=== PATIENT | male | born 1990 | race Caucasian/White ===

== ENCOUNTER 2019-04-04 16:14 | Inpatient (IN) ==
[~2019-04-04 16:14] MED LIST: LORazepam 2 MG/ML VIAL ONE
[2019-04-04] MEDS ORDERED: LORazepam 2 MG/ML VIAL IM ONE (16:18)
[2019-04-04] MEDS ORDERED: LORazepam 2 MG/ML VIAL IV PRN (16:19)
[2019-04-04] MEDS ORDERED: LORazepam 2 MG/ML VIAL IV ONE ×4 (16:43→17:13)
[2019-04-04] MEDS ORDERED: diphenhydrAMINE 50 MG/ML VIAL IV ONE (16:44)
[2019-04-04 17:08] LABS: Basophils # (Auto) 0 K/mcL (0.0-0.3); Basophils % (Auto) 0.4 % (0.0-2.0); Eosinophils # (Auto) 0.1 K/mcL (0.0-0.7); Eosinophils % (Auto) 1.2 % (0.0-7.0); Granulocytes % (Auto) 64.6 % (38.0-78.0); Hematocrit 48.4 % (41.0-55.0); Hemoglobin 15.9 g/dL (13.5-16.5); Lymphocytes # (Auto) 2.8 K/mcL (1.5-4.8); Lymphocytes % (Auto) 26.7 % (15.5-49.0); Mean Corpuscular HGB Conc 32.9 g/dL (31.0-36.0); Mean Platelet Volume 9.3 fL (7.4-10.4); Monocytes # (Auto) 0.8 K/mcL (0.1-0.9); Monocytes % (Auto) 7.1 % (1.0-12.0); Platelet Count 329 K/mcL (140-440); RBC 5.56 M/mcL (4.50-5.90); Red Cell Distribution Width 13.4 % (11.5-14.5); WBC 10.6 K/mcL (4.5-11.0)
[2019-04-04] MEDS ORDERED: ACETAMINOPHEN 650 MG SUPP.RECT PR ONE (17:18)
[2019-04-04 17:24] LABS: Appearance,Urine CLEAR; Bacteria,Urine 0 /hpf (0); Bilirubin,Urine NEG (NEG); Color,Urine YELLOW; Glucose,Urine (UA) NEGATIVE (NEG); Ketones,Urine NEG (NEG); Leukocyte Esterase,Urine NEG /uL (NEG); Mucus,Urine FEW /hpf (0); Nitrate,Urine NEG (NEG); Protein,Urine 30 mg/dL (NEG); Specific Gravity,Urine 1.023 (1.000-1.035); Sperm,Urine PRESENT /hpf (ABSENT); Urine Blood 0.03 mg/dL (<0.03); Urine Hyaline Cast 5 /lpf (0-2); Urine RBC 17 /hpf (0-1); Urine Squamous Epithelial Cell 0 /hpf (0-4); Urine WBC 3 /hpf (0-4)
[2019-04-04 17:28] LABS: ALT/SGPT 20 U/l (0-40); AST/SGOT 32 U/l (0-37); Albumin 4.8 gm/dL (3.2-5.2); Albumin/Globulin Ratio 1.8 (1.0-2.3); Alkaline Phosphatase 56 U/L (39-117); Bilirubin,Total 0.3 mg/dL (0.0-1.0); Blood Urea Nitrogen 17 mg/dl (6-20); Calcium 9.4 mg/dl (8.6-10.4); Carbon Dioxide 23 mmol/L (22-30); Chloride 99 mmol/L (96-108); Globulin 2.6 gm/dL (2.2-3.7); Glomerular Filtration Rate 83; Glucose 95 mg/dL (70-105)
[2019-04-04] MEDS ORDERED: LORazepam 50 MG in DEXTROSE 5% IN WATER 75 ML IV SCH (17:30)
[2019-04-04 17:31] LABS: Amphetamine Screen,Urine SUSPECT POSITIVE (NONDETECTED); Barbiturate Screen,Urine NONE DETECTED (NONDETECTED); Benzodiazepines Screen,Urine NONE DETECTED (NONDETECTED); Cannabinoid Screen,Urine SUSPECT POSITIVE (NONDETECTED); Cocaine Screen,Urine NONE DETECTED (NONDETECTED); Opiate Screen,Urine NONE DETECTED (NONDETECTED); Oxycodone, Urine Screen NONE DETECTED (NONDETECTED); Phencyclidine Screen,Urine NONE DETECTED (NONDETECTED)
[2019-04-04] MEDS ORDERED: OLANZapine 10 MG VIAL IM SCH (18:00)
--- NOTE | 2019-04-04 18:53 | Cat Scan Report ---
CLINICAL INFORMATION: Altered mental status TECHNIQUE: Axial noncontrast enhanced images to the brain. Sagittal and coronal reformatted images COMPARISON: Previous brain CT scan dated 09/23/2008 FINDINGS: No acute intracranial hemorrhage. There is no subdural hematoma. No subarachnoid hemorrhage. No intra-axial hematoma. No focal intra-axial attenuation abnormality or localized mass effect. No midline shift. Brain volume is normal. No hydrocephalus. Brainstem and cerebellum are negative. Basilar cisterns are normal No calvarial lesions. No fracture. No lytic lesion. Temporal bones are negative No interval change IMPRESSION: Negative noncontrast enhanced brain CT Interpreted and Authenticated by: Moustapha Rodriguez 04/04/19
--- NOTE | 2019-04-04 18:54 | XRay Report ---
INDICATION: Altered mental status. Fever TECHNIQUE: AP chest x-ray,portable supine COMPARISON: Previous examination dated 06/01/2012 FINDINGS:Lungs are negative. No parenchymal infiltrate or mass. No focal pulmonary parenchymal abnormality. Heart size and vascularity are normal. [place] and mediastinum are negative. No acute abnormality or interval change IMPRESSION: Negative AP chest x-ray Interpreted and Authenticated by: Moustapha Rodriguez 04/04/19
--- NOTE | 2019-04-04 19:23 | Emergency Department Note ---
Altered Mental Status HPI - General Chief Complaint: Altered Mental Status Stated Complaint: altered mental status Time Seen by Provider: 04/04/19 16:20 Source: other Mode of arrival: other Limitations: no limitations - History of Present Illness HPI Narrative: 28-year-old male was brought in via private vehicle for possible drug overdose. They state altered LOC. Patient arrives with a female who states she is a friend of his but does not know him well. The female states he was at a bar and had a drink and then started behaving this way. Patient arrives absolutely covered in dirt and like he is fine cement powder. He is violent and uncooperat guerrero. Is able to tell us his birthday and first name but we cannot get much of information out of him at all otherwise. Is hallucinating. Believes he is at his mother's house. Insisting that he is talking to people in the room that are not there. He denies any recent cough, cold, or illness. Denies any injury or trauma. However he says no to everything and history is unreliable. Cannot tell us if he is in any pain, etc. family concerned that he was hanging around people the last couple of days that use an abundance of drugs including methamphetamine and I think this is a possibility. He has used methamphetamine heavily in the past. Context: drug abuse - Related Data Allergies Allergy/AdvReac Type Severity Reaction Status Date / Time sulfamethoxazole Allergy Unknown Unknown Verified 04/04/19 17:17 [From ] trimethoprim [From ] Allergy Unknown Unknown Verified 04/04/19 17:17 Review of Systems All systems ED: reviewed and negative except as stated. Past Medical History - Past Medical History Medical history: Reports: other (Polysubstance abuse) Psychiatric history: Reports: anxiety, depression, bipolar, schizophrenia Surgical history ED: Reports: orthopedic, other (knee) - Social History smoking status: Unknown if ever smoked Alcohol use: Reports: Unknown Drug use: Reports: unknown Physical Exam Limitations: no limitations General appearance: appears intoxicated, other (Extremely agitated, thrashing all over, can answer yes and no but does not make any sense when responding in any other form. Thinks he is at his mom's house and is obviously hallucinating. He is seeing and hearing things in the room that currently are not there.) Head: atraumatic, normocephalic, normal inspection, other (His head and entire body is covered in dirt and what appears to be like a cement powder.) Eye: Present: PERRL (Pupils are 4 mm bilaterally, equal and responsive to light), conjunctival injection (Mild bilaterally). Absent: periorbital swelling ENT: Present: TM's normal bilaterally, normal external ear exam (full of dirt). Absent: mucous membranes moist (Dry and full of dirt) Neck: Present: full ROM, trachea midline, other (Superficial abrasions to anterior and posterior neck). Absent: tenderness Chest: Present: symmetric chest wall rise Respiratory: Absent: respiratory distress, rales/crackles, accessory muscle use Cardiovascular: Present: tachycardia (Tachycardic in the 150s 160s on arrival) Back: Present: other (Multiple abrasions to the back) Neurological: Present: other (Agitated, combative, and will not follow commands.) Coma Scale Eye Opening: Spontaneous Coma Scale Motor Response: Withdraws to Pain Coma Scale Verbal Response: Inappropriate Coma Scale Total: 11 Psychiatric: Present: agitated, anxious, poor eye contact Expanded phychiatric: Present: paranoid, restlessness, uncooperative, auditory hallucinations, visual hallucinations Skin: Present: warm, diaphoretic, normal color Course Course Narrative: Patient continued to be severely combative, disoriented and delusional despite Ativan titration. Finally after about an hour and a half of Ativan to her titration as well as Zyprexa IM he did improve and we are able to get a CAT scan and further work-up. His and his mom are at the bedside. reports he has not been home in at least 3 days. His behavior is been very erratic as well. States she did talk to him through messages this morning. His mom is also at the bedside. Mom states that she is some suspected 2 to 3 weeks ago when he came to visit her that he was off of all of his routine meds and possibly using again. She tried to get him to do a drug test but he refused. She had not seen him since until she got the call today as she has his emergency contact. Mom reports history of bipolar, schizophrenia, anxiety, depression, polysubstance abuse. States he is currently on probation and was doing well for a while but obviously is not again. She states when he is severe like this he goes for days and days without sleeping and it gets worse and worse. Mom states he gets his medications at the [facility]. reports he has not had medications for over a month and refused to go the doctor had have his labs drawn etc. They report he is supposed to be on BuSpar, Seroquel, and Depakote. They deny that he has ever done inpatient treatment before for mental health reasons or substance abuse however he does have a history of outpatient treatment for both. At 1999, his went to try to get his phone and belongings from a place that he was last known to stay at. It was at this time that they found that his friend that he had been with all day had overdosed, EMS was called and he was pronounced at the scene. They believe he was with him all day using the same drugs etc. Family states they were told this person started acting violent and irrational too so they locked him in a room and checked on him after a while and he was . According to family they were using the same things and they now believe this was "bad drugs or an overdose". Vital Signs Temperature 99.1 F H 04/04/19 16:30 Temperature 98.3 F 04/04/19 19:49 Pulse Rate 122 H 04/04/19 19:49 Respiratory Rate 21 04/04/19 19:49 Blood Pressure 132/71 04/04/19 19:41 Pulse Oximetry (%) 97 04/04/19 19:49 Altered Mental Status - Lab Data Lab results reviewed: Yes I reviewed the patient's lab results. Result diagrams: 04/04/19 16:28 04/04/19 16:28 Lab Results 04/04/19 04/04/19 04/04/19 Range/Units 16:00 16:28 16:28 WBC 10.6 (4.5-11.0) K/mcL RBC 5.56 (4.50-5.90) M/mcL Hgb 15.9 (13.5-16.5) g/dL Hct 48.4 (41.0-55.0) % MCV 87.0 (80.0-100.0) fL MCH 28.6 (26.0-34.0) pg MCHC 32.9 (31.0-36.0) g/dL RDW 13.4 (11.5-14.5) % Plt Count 329 (140-440) K/mcL MPV 9.3 (7.4-10.4) fL Gran % 64.6 (38.0-78.0) % Lymph % (Auto) 26.7 (15.5-49.0) % [place] % (Auto) 7.1 (1.0-12.0) % Eos % (Auto) 1.2 (0.0-7.0) % Baso % (Auto) 0.4 (0.0-2.0) % Gran # 6.8 (1.8-8.0) K/mcL Lymph # (Auto) 2.8 (1.5-4.8) K/mcL [place] # (Auto) 0.8 (0.1-0.9) K/mcL Eos # (Auto) 0.1 (0.0-0.7) K/mcL Baso # (Auto) 0 (0.0-0.3) K/mcL PT (11.9-14.5) sec INR (0.9-1.1) Sodium 143 (133-145) mmol/L Potassium 3.8 (3.3-5.1) mmol/L Chloride 99 (96-108) mmol/L Carbon Dioxide 23 (22-30) mmol/L Anion Gap 21.0 H (8-16) BUN 17 (6-20) mg/dl Creatinine 1.2 (0.7-1.2) mg/dl GFR Calculation 83 Glucose 95 (70-105) mg/dL Calcium 9.4 (8.6-10.4) mg/dl Total Bilirubin 0.3 (0.0-1.0) mg/dL AST 32 (0-37) U/l ALT 20 (0-40) U/l Alkaline Phosphatase 56 (39-117) U/L Total Creatine Kinase (24-195) IU/L Total Protein 7.4 (5.9-8.4) gm/dL Albumin 4.8 (3.2-5.2) gm/dL Globulin 2.6 (2.2-3.7) gm/dL Albumin/Globulin Ratio 1.8 (1.0-2.3) Urine Color Urine Appearance Urine pH (5.0-9.0) Ur Specific [place] (1.000-1.035) Urine Protein (NEG) mg/dL Urine Glucose (UA) (NEG) mg/dL Urine Ketones (NEG) mg/dL Urine Occult Blood (<0.03) mg/dL Urine Nitrate (NEG) Urine Bilirubin (NEG) mg/dL Urine Urobilinogen (NEG) mg/dL Ur Leukocyte Esterase (NEG) /uL Urine RBC (0-1) /hpf Urine WBC (0-4) /hpf Ur Squamous Epith Cells (0-4) /hpf Urine Bacteria (0) /hpf Hyaline Casts (0-2) /lpf Urine Mucus (0) /hpf Urine Sperm (ABSENT) /hpf Urine Opiates Screen (NONDETECTED) Ur Oxycodone Screen (NONDETECTED) Urine Methadone Screen (NONDETECTED) Ur Barbiturates Screen (NONDETECTED) Valproic Acid 4.5 ug/mL Valproic Acid Dose Not Reportable Valpro Last Dose Time Not Reportable Ur Phencyclidine Scrn (NONDETECTED) Ur Amphetamines Screen (NONDETECTED) U Benzodiazepines Scrn (NONDETECTED) Urine Cocaine Screen (NONDETECTED) U Marijuana (THC) Screen (NONDETECTED) 04/04/19 04/04/19 04/04/19 Range/Units 16:35 16:35 19:39 WBC (4.5-11.0) K/mcL RBC (4.50-5.90) M/mcL Hgb (13.5-16.5) g/dL Hct (41.0-55.0) % MCV (80.0-100.0) fL MCH (26.0-34.0) pg MCHC (31.0-36.0) g/dL RDW (11.5-14.5) % Plt Count (140-440) K/mcL MPV (7.4-10.4) fL Gran % (38.0-78.0) % Lymph % (Auto) (15.5-49.0) % [place] % (Auto) (1.0-12.0) % Eos % (Auto) (0.0-7.0) % Baso % (Auto) (0.0-2.0) % Gran # (1.8-8.0) K/mcL Lymph # (Auto) (1.5-4.8) K/mcL [place] # (Auto) (0.1-0.9) K/mcL Eos # (Auto) (0.0-0.7) K/mcL Baso # (Auto) (0.0-0.3) K/mcL PT 13.1 (11.9-14.5) sec INR 1.0 (0.9-1.1) Sodium (133-145) mmol/L Potassium (3.3-5.1) mmol/L Chloride (96-108) mmol/L Carbon Dioxide (22-30) mmol/L Anion Gap (8-16) BUN (6-20) mg/dl Creatinine (0.7-1.2) mg/dl GFR Calculation Glucose (70-105) mg/dL Calcium (8.6-10.4) mg/dl Total Bilirubin (0.0-1.0) mg/dL AST (0-37) U/l ALT (0-40) U/l Alkaline Phosphatase (39-117) U/L Total Creatine Kinase (24-195) IU/L Total Protein (5.9-8.4) gm/dL Albumin (3.2-5.2) gm/dL Globulin (2.2-3.7) gm/dL Albumin/Globulin Ratio (1.0-2.3) Urine Color Yellow Urine Appearance Clear Urine pH 6.0 (5.0-9.0) Ur Specific [place] 1.023 (1.000-1.035) Urine Protein 30 A (NEG) mg/dL Urine Glucose (UA) Negative (NEG) mg/dL Urine Ketones Neg (NEG) mg/dL Urine Occult Blood 0.03 A (<0.03) mg/dL Urine Nitrate Neg (NEG) Urine Bilirubin Neg (NEG) mg/dL Urine Urobilinogen 2.0 A (NEG) mg/dL Ur Leukocyte Esterase Neg (NEG) /uL Urine RBC 17 H (0-1) /hpf Urine WBC 3 (0-4) /hpf Ur Squamous Epith Cells 0 (0-4) /hpf Urine Bacteria 0 (0) /hpf Hyaline Casts 5 H (0-2) /lpf Urine Mucus Few (0) /hpf Urine Sperm Present A (ABSENT) /hpf Urine Opiates Screen None detected (NONDETECTED) Ur Oxycodone Screen None detected (NONDETECTED) Urine Methadone Screen None detected (NONDETECTED) Ur Barbiturates Screen None detected (NONDETECTED) Valproic Acid ug/mL Valproic Acid Dose Valpro Last Dose Time Ur Phencyclidine Scrn None detected (NONDETECTED) Ur Amphetamines Screen Suspect positive A (NONDETECTED) U Benzodiazepines Scrn None detected (NONDETECTED) Urine Cocaine Screen None detected (NONDETECTED) U Marijuana (THC) Screen Suspect positive A (NONDETECTED) 04/04/19 Range/Units 19:39 WBC (4.5-11.0) K/mcL RBC (4.50-5.90) M/mcL Hgb (13.5-16.5) g/dL Hct (41.0-55.0) % MCV (80.0-100.0) fL MCH (26.0-34.0) pg MCHC (31.0-36.0) g/dL RDW (11.5-14.5) % Plt Count (140-440) K/mcL MPV (7.4-10.4) fL Gran % (38.0-78.0) % Lymph % (Auto) (15.5-49.0) % [place] % (Auto) (1.0-12.0) % Eos % (Auto) (0.0-7.0) % Baso % (Auto) (0.0-2.0) % Gran # (1.8-8.0) K/mcL Lymph # (Auto) (1.5-4.8) K/mcL [place] # (Auto) (0.1-0.9) K/mcL Eos # (Auto) (0.0-0.7) K/mcL Baso # (Auto) (0.0-0.3) K/mcL PT (11.9-14.5) sec INR (0.9-1.1) Sodium (133-145) mmol/L Potassium (3.3-5.1) mmol/L Chloride (96-108) mmol/L Carbon Dioxide (22-30) mmol/L Anion Gap (8-16) BUN (6-20) mg/dl Creatinine (0.7-1.2) mg/dl GFR Calculation Glucose (70-105) mg/dL Calcium (8.6-10.4) mg/dl Total Bilirubin (0.0-1.0) mg/dL AST (0-37) U/l ALT (0-40) U/l Alkaline Phosphatase (39-117) U/L Total Creatine Kinase 855 H (24-195) IU/L Total Protein (5.9-8.4) gm/dL Albumin (3.2-5.2) gm/dL Globulin (2.2-3.7) gm/dL Albumin/Globulin Ratio (1.0-2.3) Urine Color Urine Appearance Urine pH (5.0-9.0) Ur Specific [place] (1.000-1.035) Urine Protein (NEG) mg/dL Urine Glucose (UA) (NEG) mg/dL Urine Ketones (NEG) mg/dL Urine Occult Blood (<0.03) mg/dL Urine Nitrate (NEG) Urine Bilirubin (NEG) mg/dL Urine Urobilinogen (NEG) mg/dL Ur Leukocyte Esterase (NEG) /uL Urine RBC (0-1) /hpf Urine WBC (0-4) /hpf Ur Squamous Epith Cells (0-4) /hpf Urine Bacteria (0) /hpf Hyaline Casts (0-2) /lpf Urine Mucus (0) /hpf Urine Sperm (ABSENT) /hpf Urine Opiates Screen (NONDETECTED) Ur Oxycodone Screen (NONDETECTED) Urine Methadone Screen (NONDETECTED) Ur Barbiturates Screen (NONDETECTED) Valproic Acid ug/mL Valproic Acid Dose Valpro Last Dose Time Ur Phencyclidine Scrn (NONDETECTED) Ur Amphetamines Screen (NONDETECTED) U Benzodiazepines Scrn (NONDETECTED) Urine Cocaine Screen (NONDETECTED) U Marijuana (THC) Screen (NONDETECTED) - Radiology Data Radiology results reviewed: Yes I reviewed the patient's radiology results. Disposition Pt seen by APPRAISAL MANAGER/PA only: Yes Clinical Impression: Amphetamine overdose, Altered level of consciousness, History of schizophrenia, History of bipolar disorder, History of drug abuse Disposition: Xfer As Inpt ([facility] Condition: Serious
[2019-04-04] MEDS ORDERED: DIPH,PERTUSS(ACELL),TET VAC/PF 0.5 ML SYRINGE IM ONE (19:25)
[2019-04-04] MEDS ORDERED: 0.9 % SODIUM CHLORIDE 500 ML IV ONE ×2 (19:44→20:20)
[2019-04-04 20:17] LABS: Prothrombin Time 13.1 sec (11.9-14.5)
[2019-04-04 20:32] LABS: Acetaminophen < 5.0 ug/mL; Salicylate < 0.3 mg/dL
--- NOTE | 2019-04-04 20:48 | Internal Med History&Physical ---
Medical - H&P: [facility] Patient information: Note initiated : 04/04/19 at 8:38 pm Service Date, if different from initiated Date: [] Patient: Elizabeth Cruz a 28 y/o M admitted on for altered mental status. Chief Complaint: [] History of present illness: Mr. Cruz is a 28 year old M Who arrived to the ED in a private vehicle altered yelling and had involuntary movements. He was accompanied by the commercial collections driver who seemed intoxicated as well. Story is difficult to derive but it sounds like he was at a private residence/b sc and started acting strange. He arrived covered in dirt with cement powder on them. He was very violent and uncooperative. He was able to tell ED provider's birthday and first name but not much else. He seemed to be hallucinating. Lives in ED and is concerned that he is back into drug use including methamphetamines. He is currently on probation. I discussed the case briefly with 1 of the police officers who was in the ED: Sounds like there was quite a few people at a private residence and it sounds like one individual actually from a assumed overdose. Detectives are currently out on scene interviewing multiple individuals. In the ED was found to be hyperthermic tachycardic tachypneic and hypertensive. Given multiple doses of lorazepam and then eventually given a dose of Zyprexa finally sedated him. Vital signs stabilizing. He is protecting his airway. Per staff he was also diaphoretic when he arrived. Labs are essentially unremarkable except for his CK which is little elevated, he is not acidotic. Urine drug screen with methamphetamines and marijuana. Review of systems unable to obtain as patient is currently sedated. Medical - H&P: [facility] Medical history: Medical history: Psychiatric Substance abuse Surgical history: None per per family Social history: Patient smokes cigarettes Substance abuse including IV use, usually methamphetamines Lives at home with but is gone for days at time assumed to be with friends Medical - H&P: Meds Allergies Allergy/AdvReac Type Severity Reaction Status Date / Time sulfamethoxazole Allergy Unknown Unknown Verified 04/04/19 17:17 [From ] trimethoprim [From ] Allergy Unknown Unknown Verified 04/04/19 17:17 Medical - H&P: Exam - Constitutional Vitals: Temp Pulse Resp BP Pulse Ox 98.2 F 117 H 19 134/76 97 10/29/19 20:01 04/04/19 20:01 04/04/19 20:01 04/04/19 20:01 04/04/19 20:01 Exam: General: Sedated, No acute Distress at this time, Eyes/N/T: PERRL, DMM Head/Neck: neck supple, normocephalic atraumatic CV: RRR, No murmurs, normal s1/s2 Pulm: Clear b/l, no wheezing/rhonchi/rales Abd: soft, nontender, +BS x4 Ext: no clubbing/cyanosis/edema Neuro: Sedated, responds to touch all 4 extremities , PERRL, moves all extremities spontaneously Skin: warm/dry Medical - H&P: Reslt - Labs CBC & Chem 7: 04/04/19 16:28 04/04/19 16:28 Labs: Short CBC 04/04/19 Range/Units 16:28 WBC 10.6 (4.5-11.0) K/mcL Hgb 15.9 (13.5-16.5) g/dL Hct 48.4 (41.0-55.0) % Plt Count 329 (140-440) K/mcL BMP 04/04/19 16:28 Sodium 143 Potassium 3.8 Chloride 99 Carbon Dioxide 23 BUN 17 Creatinine 1.2 Glucose 95 Calcium 9.4 Cardiac Enzymes 04/04/19 Range/Units 19:39 Total Creatine Kinase 855 H (24-195) IU/L Liver Function 04/04/19 Range/Units 16:28 Total Bilirubin 0.3 (0.0-1.0) mg/dL AST 32 (0-37) U/l ALT 20 (0-40) U/l Alkaline Phosphatase 56 (39-117) U/L Albumin 4.8 (3.2-5.2) gm/dL Urine 04/04/19 Range/Units 16:35 Urine Color Yellow Urine Appearance Clear Urine pH 6.0 (5.0-9.0) Ur Specific [place] 1.023 (1.000-1.035) Urine Protein 30 A (NEG) mg/dL Urine Glucose (UA) Negative (NEG) mg/dL - Impressions Chest x-ray unremarkable. CT brain unremarkable no mention of edema. Medical - H&P: A/P - Narrative A/P Narrative: A: *Drug overdose, methamphetamine + ?: -Tachycardic/tachypneic/hyperthermic/hypertensive -EKG ok, no acidotic, APA/ASA wnl *Rhabdomyolysis: renal fxn stable at this time *Substance Abuse: *h/o bipolar/schizophrenia: * P: -prn benzodiazepines -monitor vitals closely -monitor for airway compromise -IVF's -monitor UOP -f/u chemistry - -referral for counseling, including Dr. Leon -ppx: SCD/H2
[2019-04-04] MEDS ORDERED: PROMETHAZINE 25 MG/ML VIAL IV PRN (21:18)
[2019-04-04] MEDS ORDERED: ONDANSETRON 4 MG/2 ML VIAL IV PRN (21:18)
[2019-04-04] MEDS ORDERED: LACTATED RINGERS 1,000 ML IV SCH (21:18)
[2019-04-04] MEDS ORDERED: DIAZEPAM 5 MG/ML VIAL IV PRN (21:18)
[2019-04-04] MEDS ORDERED: DIAZEPAM 10 MG/2 ML SYRINGE ONE (21:26)
[2019-04-04 21:29] LABS: Alcohol, Blood < 10.0 mg/dL (<10); Alcohol,Blood < 0.010 gm/dl (<0.010)
[2019-04-04] MEDS: 0.9 % SODIUM CHLORIDE 10 ML SYRINGE IV SCH (22:04)
[2019-04-04] MEDS: DIAZEPAM 10 MG/2 ML SYRINGE IV PRN ×2 (22:04→23:01)
[2019-04-04] MEDS: FAMOTIDINE/PF 20 MG/2 ML VIAL IV SCH (23:30)
[2019-04-05] MEDS: DIAZEPAM 10 MG/2 ML SYRINGE IV PRN ×6 (02:05→23:24)
[2019-04-05] MEDS ORDERED: 0.9 % SODIUM CHLORIDE 1,000 ML IV SCH (03:30)
[2019-04-05] MEDS: 0.9 % SODIUM CHLORIDE 10 ML SYRINGE IV SCH ×3 (06:11→21:32)
[2019-04-05 06:29] LABS: Basophils # (Auto) 0 K/mcL (0.0-0.3); Basophils % (Auto) 0.1 % (0.0-2.0); Eosinophils # (Auto) 0 K/mcL (0.0-0.7); Eosinophils % (Auto) 0 % (0.0-7.0); Hematocrit 43.8 % (41.0-55.0); Hemoglobin 14.3 g/dL (13.5-16.5); Lymphocytes # (Auto) 1.2 K/mcL (1.5-4.8); Lymphocytes % (Auto) 13.1 % (15.5-49.0); Mean Cell Volume 87.8 fL (80.0-100.0); Mean Corpuscular HGB Conc 32.7 g/dL (31.0-36.0); Mean Platelet Volume 9.5 fL (7.4-10.4); Monocytes # (Auto) 0.9 K/mcL (0.1-0.9); Monocytes % (Auto) 9.8 % (1.0-12.0); Platelet Count 254 K/mcL (140-440); RBC 4.99 M/mcL (4.50-5.90); Red Cell Distribution Width 13.1 % (11.5-14.5); WBC 9.3 K/mcL (4.5-11.0)
[2019-04-05 06:43] LABS: ALT/SGPT 52 U/l (0-40); AST/SGOT 238 U/l (0-37); Albumin 3.7 gm/dL (3.2-5.2); Albumin/Globulin Ratio 1.5 (1.0-2.3); Alkaline Phosphatase 48 U/L (39-117); Bilirubin,Direct < 0.2 mg/dL (0.0-0.3); Bilirubin,Total 0.6 mg/dL (0.0-1.0); Blood Urea Nitrogen 19 mg/dl (6-20); Calcium 8.9 mg/dl (8.6-10.4); Carbon Dioxide 23 mmol/L (22-30); Chloride 104 mmol/L (96-108); Globulin 2.4 gm/dL (2.2-3.7); Glomerular Filtration Rate 123; Glucose 95 mg/dL (70-105); Lactate Dehydrogenase 697 U/L (94-250); Phosphorous 5.1 mg/dL (2.7-4.5); Triglycerides 36 mg/dl (<150); Uric Acid 6.9 mg/dL (2.5-8.0)
[2019-04-05 06:44] LABS: INR 1.1 (0.9-1.1); Prothrombin Time 14.3 sec (11.9-14.5)
[2019-04-05 06:55] LABS: Creatine Kinase 17869 IU/L (24-195)
--- NOTE | 2019-04-05 07:33 | Internal Med Progress Note ---
Medical - PN: Subj Patient information: Note initiated : 04/05/19 at 7:27 am Service Date, if different from initiated Date: [] Patient: Elizabeth Cruz a 28 y/o M admitted on 04/04/19 for altered mental status. Chief Complaint: [] Interval history: Mr. Cruz is a 28 year old M Who arrived to the ED in a private vehicle altered yelling and had involuntary movements. He was accompanied by the stock driver who seemed intoxicated as well. Story is difficult to derive but it sounds like he was at a private residence/[facility] and started acting strange. He arrived covered in dirt with cement powder on them. He was very violent and uncooperative. He was able to tell ED provider's birthday and first name but not much else. He seemed to be hallucinating. Lives in ED and is concerned that he is back into drug use including methamphetamines. He is currently on probation. I discussed the case briefly with 1 of the police officers who was in the ED: Sounds like there was quite a few people at a private residence and it sounds like one individual actually from a assumed overdose. Detectives are currently out on scene interviewing multiple individuals. In the ED was found to be hyperthermic tachycardic tachypneic and hypertensive. Given multiple doses of lorazepam and then eventually given a dose of Zyprexa finally sedated him. Vital signs stabilizing. He is protecting his airway. Per staff he was also diaphoretic when he arrived. Labs are essentially unremarkable except for his CK which is little elevated, he is not acidotic. Urine drug screen with methamphetamines and marijuana. It sounds sound like the cement powder that patient was covered in is used in the process of making methamphetamine and that he was likely making it with another individual who is 30 years old. This individual who was acting similar to him at the house was shut in a bedroom because of his agitation and was later found in the room. 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 Patient admits that people are making meth using the "wasp being" method but did not admit to taking it. A little agitated, denies any pains or complaints, no fevers. Vital signs are stable. Has had some hallucinations but is mentally much more clear than yesterday. Review of Systems: denies headache/fever/chills/nausea/vomiting/chest or abdominal pain/cough/dyspnea/diarrhea. Otherwise see above. - Constitutional Vitals: Vital Signs Temp Pulse Resp BP Pulse Ox 98.4 F 88 18 152/96 97 04/05/19 07:00 04/05/19 07:02 04/05/19 07:02 04/05/19 07:01 04/05/19 07:00 Period Temp Pulse Resp BP Sys/Guthrie Pulse Ox Last 24 Hr 96.1 F-103.5 F 86-159 14-34 104-177/70-151 92-97 Intake and Output 04/04/19 04/05/19 04/05/19 21:59 05:59 13:59 Intake Total 511 725 Output Total 602 100 Balance 511 123 -100 Weight 100.199 kg Intake & Output: Intake & Output 04/04/19 04/05/19 04/05/19 21:59 05:59 13:59 Intake Total 511 725 Output Total 602 100 Balance 511 123 -100 Weight 100.199 kg Intake: IV 511 725 Sodium Chloride 0.9% 500 ml @ 500 500 mls/hr IV [facility] Rx#: [id number] Ativan 50 mg In Dextrose 5% in 11 Water 75 ml @ 0.01 MG/KG/HR 2. 087 mls/hr IV Q12H [facility] Rx#: [id number] Lactated Ringers 1,000 ml @ 100 725 mls/hr IV .Q10H [facility] Rx#: [id number] Output: Urine Catheter Amount 602 100 Other: Urine Appearance Clear Clear Uretheral (Navarrete) Clear Clear Urine Color Bright Yellow Dark Yellow Uretheral (Navarrete) Bright Yellow Dark Yellow Exam: General: sleeping but easily awakens, No acute Distress at this time, Eyes/N/T: EOMI Head/Neck: neck supple, CV: RRR, No murmurs, Pulm: Clear b/l, no wheezing/rhonchi/rales Abd: soft, nontender, +BS x4 Ext: no clubbing/cyanosis/edema Neuro: awakens, follows commands and answers question somewhat appropriately but sometimes incomprehensible, moves all extremities spontaneously Skin: warm/dry Medical - PN: Obj Da - Labs CBC & Chem 7: 04/05/19 04:15 04/05/19 04:15 Labs: Abnormal Lab Results 04/05/19 04/05/19 04/04/19 04:15 04:15 19:39 Lymph % (Auto) 13.1 L Lymph # (Auto) 1.2 L Anion Gap Phosphorus 5.1 H AST 238 H ALT 52 H Lactate Dehydrogenase 697 H Total Creatine Kinase 87835 H 855 H Urine Protein Urine Occult Blood Urine Urobilinogen Urine RBC Hyaline Casts Urine Sperm Ur Amphetamines Screen U Marijuana (THC) Screen 04/04/19 04/04/19 04/04/19 16:35 16:35 16:28 Lymph % (Auto) Lymph # (Auto) Anion Gap 21.0 H Phosphorus AST ALT Lactate Dehydrogenase Total Creatine Kinase Urine Protein 30 A Urine Occult Blood 0.03 A Urine Urobilinogen 2.0 A Urine RBC 17 H Hyaline Casts 5 H Urine Sperm Present A Ur Amphetamines Screen Suspect positive A U Marijuana (THC) Screen Suspect positive A Meds: Medications Diazepam (Valium) 5 mg IV Q30M PRN PRN Reason: Agitation Last Admin: 04/05/19 05:43 Dose: 5 mg Documented by: Famotidine (Pepcid) [address] [facility] Last Admin: 04/04/19 23:30 Dose: 20 mg Documented by: Sodium Chloride (Sodium Chloride 0.9%) 1,000 mls @ 100 mls/hr IV .Q10H [facility] Last Admin: 04/05/19 03:20 Dose: 100 mls/hr Documented by: Morphine Sulfate (Morphine) 1 - 3 mg IV Q3HP PRN; Protocol PRN Reason: Per Pain Protocol Ondansetron HCl (Zofran) 4 mg IV Q4-6HP PRN; Protocol PRN Reason: Nausea And Vomiting Promethazine HCl (Phenergan) 12.5 mg IV Q4-6HP PRN; Protocol PRN Reason: Nausea And Vomiting Sodium Chloride (Saline Flush) [address] [facility] Last Admin: 04/05/19 06:11 Dose: Not Given Documented by: Medical - PN: A/P - Time Spent With Patient Total time spent is greater than 50% in coordination of care (as documented) at patient's floor/unit and/or counseling patient: - Narrative A/P Narrative: A: *Drug overdose, methamphetamine + ? (likely using wasp spray to make Meth, "wasping"): -Tachycardic/tachypneic/hyperthermic/hypertensive REsolved -EKG ok, no acidotic, APA/ASA wnl *Rhabdomyolysis: renal fxn stable at this time *Transaminitis: 2/2 above *Substance Abuse: *h/o bipolar/schizophrenia: *seizure d/o: P: -prn benzodiazepines -IVF's, monitor UOP -monitor vitals closely -f/u chemistry and CK -clarify meds and restart depakote -referral for counseling, including Dr. Leon -ppx: SCD/H2
[2019-04-05] MEDS: 0.9 % SODIUM CHLORIDE 1,000 ML IV SCH ×4 (08:04→22:56)
[2019-04-05] MEDS: FAMOTIDINE/PF 20 MG/2 ML VIAL IV SCH ×2 (09:07→19:28)
[2019-04-05 10:09] LABS: Appearance,Urine CLEAR; Bacteria,Urine 0 /hpf (0); Bilirubin,Urine NEG (NEG); Color,Urine YELLOW; Culture Indicated,Urine NO; Glucose,Urine (UA) NEGATIVE (NEG); Ketones,Urine 80 mg/dL (NEG); Leukocyte Esterase,Urine NEG /uL (NEG); Mucus,Urine MOD /hpf (0); Nitrate,Urine NEG (NEG); Protein,Urine 30 mg/dL (NEG); Urine Blood >=1.0 mg/dL (<0.03); Urine RBC 182 /hpf (0-1); Urine Squamous Epithelial Cell < 1 /hpf (0-4); Urine WBC 3 /hpf (0-4)
[2019-04-05] MEDS: MUPIROCIN OINT 2% 22GM NARES SCH ×2 (11:53→19:27)
[2019-04-05] MEDS: DIVALPROEX SODIUM 250 MG TABLET PO SCH ×2 (11:53→19:28)
[2019-04-05] MEDS ORDERED: 0.9 % SODIUM CHLORIDE 1,000 ML IV ONE (15:12)
[2019-04-05] MEDS ORDERED: QUEtiapine 100 MG TABLET PO SCH (21:00)
[2019-04-05] MEDS ORDERED: busPIRone 5 MG TABLET PO SCH (21:00)
[2019-04-06] MEDS: DIAZEPAM 10 MG/2 ML SYRINGE IV PRN (02:00)
[2019-04-06] MEDS: 0.9 % SODIUM CHLORIDE 1,000 ML IV SCH (04:01)
[2019-04-06] MEDS: 0.9 % SODIUM CHLORIDE 10 ML SYRINGE IV SCH (04:37)
[2019-04-06 05:58] LABS: ALT/SGPT 77 U/l (0-40); AST/SGOT 262 U/l (0-37); Albumin 3.2 gm/dL (3.2-5.2); Albumin/Globulin Ratio 1.6 (1.0-2.3); Alkaline Phosphatase 39 U/L (39-117); Bilirubin,Direct < 0.2 mg/dL (0.0-0.3); Bilirubin,Total 0.3 mg/dL (0.0-1.0); Blood Urea Nitrogen 12 mg/dl (6-20); Calcium 8.1 mg/dl (8.6-10.4); Carbon Dioxide 24 mmol/L (22-30); Chloride 108 mmol/L (96-108); Glomerular Filtration Rate 130; Glucose 113 mg/dL (70-105); Lactate Dehydrogenase 600 U/L (94-250); Phosphorous 2.6 mg/dL (2.7-4.5); Triglycerides 59 mg/dl (<150); Uric Acid 4.2 mg/dL (2.5-8.0)
[2019-04-06 06:17] LABS: Creatine Kinase 16523 IU/L (24-195)
--- NOTE | 2019-04-06 09:33 | Discharge Summary ---
Medical - DS: Prov Patient information: Note initiated : 04/06/19 at 9:30 am Service Date, if different from initiated Date: [] Patient: Elizabeth Cruz 28 y/o M admitted on 04/04/19 for altered mental status. Date of admission: 04/04/19 21:14 Discharge date: 04/06/19 (Against Medical Advice) Attending physician on admission: Rohan Haro Consults: 04/04/19 Consult to Physician [CONS] Stat Comment: Consulting Provider: Rohan Haro Reason For Exam: Physician to Consult Attending physician on discharge: Eve Cruz Medical - DS: Meds - Discharge Medications Active and Home Medications: Home Medications Divalproex Sodium [Depakote ER] 500 mg PO BID 04/05/19 [History Confirmed 04/05/19 Last Taken 04/01/19] QUEtiapine FUMARATE [Seroquel] 300 mg PO QHS 04/05/19 [History Confirmed 04/05/19 Last Taken 03/06/19] busPIRone [Buspar] 15 mg PO QHS 04/05/19 [History Confirmed 04/05/19 Last Taken 03/15/19] Medical - DS: Hosp Hospital Course: Presentation-04/04 Mr. Cruz is a 28 year old M Who arrived to the ED in a private vehicle altered yelling and had involuntary movements. He was accompanied by the flag car driver who seemed intoxicated as well. Story is difficult to derive but it sounds like he was at a private residence/bar and started acting strange. He arrived covered in dirt with cement powder on them. He was very violent and uncooperative. He was able to tell ED provider's birthday and first name but not much else. He seemed to be hallucinating. Lives in ED and is concerned that he is back into drug use including methamphetamines. He is currently on probation. I discussed the case briefly with 1 of the police officers who was in the ED: Sounds like there was quite a few people at a private residence and it sounds like one individual actually from a assumed overdose. Detectives are currently out on scene interviewing multiple individuals. In the ED was found to be hyperthermic tachycardic tachypneic and hypertensive. Given multiple doses of lorazepam and then eventually given a dose of Zyprexa finally sedated him. Vital signs stabilizing. He is protecting his airway. Per staff he was also diaphoretic when he arrived. Labs are essentially unremarkable except for his CK which is little elevated, he is not acidotic. Urine drug screen with methamphetamines and marijuana. It sounds sound like the cement powder that patient was covered in is used in the process of making methamphetamine and that he was likely making it with another individual who is 30 years old. This individual who was acting similar to him at the house was shut in a bedroom because of his agitation and was later found in the room. 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 Patient admits that people are making meth using the "wasp being" method but did not admit to taking it. A little agitated, denies any pains or complaints, no fevers. Vital signs are stable. Has had some hallucinations but is mentally much more clear than yesterday. 04/06 Yesterday evening, stated he wanted to leave the hospital. I counseled him on the dangers of leaving with ongoing rhabdomyolysis. This morning I was contacted by his nurse before 8 AM, he states he was going to leave the hospital. I met with him explained that his muscles were still breaking down, CPK from inside the muscles was accumulating in the blood, is being filtered by the kidneys. Unless he received fluids and aggressive hydration, this could cause kidney damage and kidney failure. He understood this, understood the risks, however wanted to leave the hospital. He did not wish to stay until later in the afternoon to have labs rechecked and continue with IV fluids. I advised him to aggressively hydrate today, including at least some electrolyte- containing solutions such as a sport drink in addition to water. He does not have primary care, states he will go to the public clinic in [place] to have labs checked tomorrow. I advised him that if his urine became dark or red or the amount of urine significantly dropped off those would be danger signs to return for evaluation at an emergency department. The patient left AGAINST MEDICAL ADVICE. Discharge diagnosis: Methamphetamine toxicity Secondary discharge diagnosis: Rhabdomyolysis Encephalopathy, resolved - Time Spent with Patient Total time spent providing and/or coordinating discharge services: Less than 30 minutes Medical - DS: Exam - Constitutional Vitals: Vital Signs Temp Pulse Pulse Resp BP Pulse Ox 10/31/19 08:31 20 140/66 04/06/19 08:01 18 137/106 04/06/19 07:01 98.2 F 98 H 20 131/81 99 04/06/19 07:00 99 04/06/19 06:01 19 128/78 04/06/19 05:01 21 139/77 04/06/19 04:14 97.7 F 04/06/19 04:01 16 122/91 04/06/19 03:01 89 18 135/77 96 04/06/19 02:11 79 21 95 04/06/19 02:03 129/73 04/06/19 01:01 91 H 18 125/74 97 04/06/19 00:01 16 118/66 04/05/19 23:47 98.1 F 04/05/19 23:01 64 18 132/76 97 04/05/19 22:01 76 20 133/79 97 04/05/19 21:03 74 21 136/76 98 04/05/19 20:08 98.7 F 04/05/19 20:02 85 109/75 99 04/05/19 20:00 22 04/05/19 19:01 101 H 17 142/86 100 04/05/19 18:01 21 138/73 04/05/19 17:01 80 17 123/76 96 04/05/19 16:20 114 H 17 99 04/05/19 16:01 103 H 21 151/75 100 04/05/19 15:01 97 F 17 136/70 100 04/05/19 14:45 85 21 96 04/05/19 14:06 101 H 18 100 04/05/19 14:01 123 H 17 130/84 100 04/05/19 13:16 80 16 100 04/05/19 13:01 79 18 133/80 100 04/05/19 12:52 64 17 100 04/05/19 12:01 103 H 24 H 142/84 100 04/05/19 11:52 142/81 04/05/19 11:01 17 141/83 04/05/19 11:00 16 04/05/19 10:01 97.3 F 91 H 20 138/95 99 Intake and Output 04/05/19 04/06/19 04/06/19 21:59 05:59 13:59 Intake Total 1480 2973 400 Output Total 372 580 70 Balance 1108 4233 330 Intake: IV 1000 2973 Sodium Chloride 0.9% 1,000 ml @ 1000 2973 200 mls/hr IV .Q5H [facility] Rx#: [id number] Oral 480 400 Output: Urine Catheter Amount 372 580 70 Other: Meal Breakfast Percent of Meal Consumed 100% Feeding Ability Independent Urine Appearance Clear Clear Clear Uretheral (Navarrete) Clear Clear Clear Urine Color Bright Yellow Bright Yellow Light Anny Uretheral (Navarrete) Bright Yellow Bright Yellow Bright Yellow Urine Odor Normal # Unmeasured Emesis 1 # of times incontinent of 1 Bowels Weight 228 lb 3.2 oz General appearance: average body habitus, no acute distress - Respiratory Respiratory exam: Present: normal respiratory exam. Absent: accessory muscle use - Cardiovascular Cardiovascular exam: Present: normal rate and rhythm. Absent: systolic murmur Additional comments: No edema - GI/Abdominal GI/Abdominal exam: Present: soft. Absent: tenderness - Neurological Exam Neurological exam: Present: alert, oriented X3. Absent: motor sensory deficit - Psychiatric Psychiatric exam: Present: normal affect, normal mood. Absent: agitated, anxious - Expanded Psychiatric Exam Focused psych exam: Absent: delusional, pressured speech, psychomotor agitation - Skin Skin exam: Present: abrasion (back) Additional comments: Ecchymoses on legs Medical - DS: Data Labs on day of discharge: Labs from last 24 hours 04/06/19 04/06/19 04/05/19 04:15 04:15 09:00 Sodium 142 Potassium 3.8 Chloride 108 Carbon Dioxide 24 Anion Gap 10.0 BUN 12 Creatinine 0.7 GFR Calculation 130 Glucose 113 H Uric Acid 4.2 Calcium 8.1 L Phosphorus 2.6 L Magnesium 1.9 Total Bilirubin 0.3 Direct Bilirubin < 0.2 GGT 9 AST 262 H ALT 77 H Alkaline Phosphatase 39 Lactate Dehydrogenase 600 H Total Creatine Kinase 74719 H Total Protein 5.2 L Albumin 3.2 Globulin 2.0 L Albumin/Globulin Ratio 1.6 Triglycerides 59 Urine Color Yellow Urine Appearance Clear Urine pH 6.0 Ur Specific Cushing 1.030 Urine Protein 30 A Urine Glucose (UA) Negative Urine Ketones 80 A Urine Occult Blood >=1.0 A Urine Nitrate Neg Urine Bilirubin Neg Urine Urobilinogen 2.0 A Ur Leukocyte Esterase Neg Urine RBC 182 H Urine WBC 3 Ur Squamous Epith Cells < 1 Urine Bacteria 0 Urine Mucus Mod Ur Culture Indicated? No Preliminary micro results at discharge 04/04/19 17:29 Blood Culture - Preliminary Blood 04/04/19 17:32 Blood Culture - Preliminary Blood - Additional Comments Date of Service: 04/04/19 Procedure(s): CT head/brain wo con IMPRESSION: Negative noncontrast enhanced brain CT Date of Service: 04/04/19 Procedure(s): XR chest 1V portable IMPRESSION: Negative AP chest x-ray Medical - DS: A/P - Patient/Caregiver Discharge Instructions Activity: increase activity as tolerated Diet: Regular Diet (Hydrate well for next 2-3 days) - Follow up Plan Follow up with: [facility] [Other] Vannessa Leon DO [Physician] - Disposition: Left Against Medical Advice Prognosis: Serious Rehab Potential: Undetermined Overall status at discharge: patient is not back to baseline
[2019-04-11 17:23] LABS: Cannabinoid Confirmation POSITIVE (N)
== END 2019-04-06 08:34 | disposition left against medical advice (07) | DRG 917 ==
LOC: ED 16:14 → ICU 21:14
PROVIDERS: ADMIT Internal Medicine; ATTEND Internal Medicine